=== PATIENT | female | born 1950 | race Caucasian/White ===

== ENCOUNTER 2017-10-01 08:22 | Day surgery (SDC) | payer MEDICARE ==
[~2017-10-01] VITALS: Ht 152.4 cm; Wt 62.1 kg
[~2017-10-01 08:22] MED LIST: CHOL10002; CLOB.05TO; DHEA; Estriol0.1 GM; PRAV20; Prinivil10 MG
== END 2017-10-01 10:57 | disposition home or self-care (01) ==
LOC: ORSCSDS 08:22
PROVIDERS: Internal Medicine Gastroenterology
PROC: 0DBK8ZX Excision of Ascending Colon, Via Natural or Artificial Opening Endoscopic, Diagnostic (ICD-10-PCS; principal; 2017-10-01 09:45)
PROC: 0DBM8ZX Excision of Descending Colon, Via Natural or Artificial Opening Endoscopic, Diagnostic (ICD-10-PCS; principal; 2017-10-01 09:45)
DX: Z12.11 Encounter for screening for malignant neoplasm of colon (principal); D12.2 Benign neoplasm of ascending colon; D12.4 Benign neoplasm of descending colon; K57.30 Diverticulosis of large intestine without perforation or abscess without bleeding
CPT/HCPCS: 88305; J3010; J7120

== ENCOUNTER 2023-02-16 11:04 | Day surgery (SDC) | payer OTHER, MEDICARE ==
[2023-02-16] VITALS (10 sets, daily range): BP systolic 128–173; BP diastolic 79–96
[~2023-02-16] VITALS: Ht 157.5 cm; Wt 62.0 kg
[2023-02-16] MEDS ORDERED: Acetaminophen650 M1 PO (11:47)
--- NOTE | 2023-02-16 12:54 | NUR ---
PRE-OP NOTE PT A&OX4, BREATHING RA, CALM, NO ACUTE CONCERNS. R ARM IS BRUISED AND SWOLLEN C BERNARD WRAP, PT REPORTS NO PAIN CURRENTLY. NERVE BLOCK PERFORMED BY DR ESCOBAR ASSISTED BY ROLDAN QUINONES, TIME OUT COMPLETED PRIOR TO BLOCK. Ambulatory in Day Surgery Patient confirms NPO status and agrees with scheduled surgery. Pre-Op teaching done. Pt verbalizes understanding. Patient States Post-Procedure ride home has been arranged.
--- NOTE | 2023-02-16 14:40 | NUR ---
Into step via prudence. Pt is a&ox4. Pt denies pain or nausea. Right arm bruised, but warm and good capillary refill. Garret wrap to right arm c/d/i. Placed in sling as pt had a nerve block in pre-op. Pt tolerating sips of water without difficulty.
--- NOTE | 2023-02-16 15:00 | NUR ---
dr rebolledo at bedside
--- NOTE | 2023-02-16 15:27 | NUR ---
Patient up to Ambulate independently. Gait steady. TO RESTROOM WITH PATIENT. DRESSEDD WITH ASSISTANCE. ARM STILL NUMB FROM BLOCK, SLING APPLIED. Discharge instructions reviewed with patient AND FAMILY Patient verbalizes understanding. Copy given to patient to take home. Dressing to procedure site clean, dry, intact with no visible drainage, swelling, erythema or bruising noted. Discharged via wheelchair to private car for ride home.
== END 2023-02-16 15:30 | disposition home or self-care (01) ==
LOC: ORSCMMR 11:04 → ORD 12:30 → ORSCMMR 12:30
PROVIDERS: Orthopaedic Surgery
PROC: 0PSH04Z Reposition Right Radius with Internal Fixation Device, Open Approach (ICD-10-PCS; principal; 2023-02-16 12:30)
DX: S52.561A Barton's fracture of right radius, initial encounter for closed fracture (principal); W01.0XXA Fall on same level from slipping, tripping and stumbling without subsequent striking against object, initial encounter; I10 Essential (primary) hypertension; E78.5 Hyperlipidemia, unspecified; Z79.899 Other long term (current) drug therapy
CPT/HCPCS: 73100; C1713; J0690; J1100; J1885; J2250; J2405; J2704; J3010; J7120